=== PATIENT | male | born 1950 | race Caucasian/White ===

== ENCOUNTER 2019-12-15 16:21 | Emergency (ER) | payer OTHER ==
--- NOTE | 2019-12-15 17:10 | EDPHYS ---
Physician Documentation [facility] Name: Tito Cho Age: 69 yrs Sex: Male : 1950 Arrival Date: 12/15/2019 Time: 16:24 Bed 10 Private MD: ED Physician Walter Miller HPI: 12/14 17:36 This 69 yrs old Male presents to ER via Ambulatory with complaints of Sore snw Throat. 17:36 The patient presents with sore throat. The patient describes throat pain as scratchy. snw Onset: The symptoms/episode began/occurred acutely. Severity of symptoms: At their worst the symptoms were mild. Associated signs and symptoms: Pertinent positives: cough. It is unknown whether or not the patient has had similar symptoms in the past. The patient has been recently seen by a physician: the patient's primary care provider, with similar presenting complaints, seen in ED recently for back pain. pt non-toxic, afebrile, without fever, no SOB. Historical: - Allergies: 16:49 No Known Allergies; jl7 - Home Meds: 16:49 amlodipine oral [Active]; atorvastatin oral oral [Active]; levothyroxine oral [Active]; jl7 Hydroxyzine Oral [Active]; - PMHx: 16:49 Hyperlipidemia; Hypothyroidism; Hypertension; jl7 - Immunization history:: Adult Immunizations not up to date. - Social history:: Smoking status: Patient denies any tobacco usage or history of. ROS: 17:35 Constitutional: Negative for fever, chills, and weight loss, Eyes: Negative for injury, snw pain, redness, and discharge. 17:35 Neck: Negative for injury, pain, and swelling, Cardiovascular: Negative for chest pain, palpitations, and edema. 17:35 Abdomen/GI: Negative for abdominal pain, nausea, vomiting, diarrhea, and constipation, Back: Negative for injury and pain, : Negative for injury, bleeding, discharge, and swelling, MS/Extremity: Negative for injury and deformity, Skin: Negative for injury, rash, and discoloration, Neuro: Negative for headache, weakness, numbness, tingling, and seizure, Psych: Negative for depression, anxiety, suicide ideation, homicidal ideation, and hallucinations. 17:35 ENT: Positive for sore throat. 17:35 Respiratory: Positive for cough, with no reported sputum, croupy cough since last week, Dr. Wiggins rx cough medication and pt states cough has improved. Exam: 17:34 Constitutional: This is a well developed, well nourished patient who is awake, alert, snw and in no acute distress. Head/Face: Normocephalic, atraumatic. Eyes: Pupils equal round and reactive to light, extra-ocular motions intact. Lids and lashes normal. Conjunctiva and sclera are non-icteric and not injected. Cornea within normal limits. Periorbital areas with no swelling, redness, or edema. 17:34 Neck: Trachea midline, no thyromegaly or masses palpated, and no cervical lymphadenopathy. Supple, full range of motion without nuchal rigidity, or vertebral point tenderness. No Meningismus. Chest/axilla: Normal chest wall appearance and motion. Nontender with no deformity. No lesions are appreciated. Cardiovascular: Regular rate and rhythm with a normal S1 and S2. No gallops, murmurs, or rubs. Normal PMI, no JVD. No pulse deficits. 17:34 Abdomen/GI: Soft, non-tender, with normal bowel sounds. No distension or tympany. No guarding or rebound. No evidence of tenderness throughout. Back: No spinal tenderness. No costovertebral tenderness. Full range of motion. Skin: Warm, dry with normal turgor. Normal color with no rashes, no lesions, and no evidence of cellulitis. MS/ Extremity: Pulses equal, no cyanosis. Neurovascular intact. Full, normal range of motion. Neuro: Awake and alert, GCS 15, oriented to person, place, time, and situation. Cranial nerves II-XII grossly intact. Motor strength 5/5 in all extremities. Sensory grossly intact. Cerebellar exam normal. Normal gait. Psych: Awake, alert, with orientation to person, place and time. Behavior, mood, and affect are within normal limits. 17:34 ENT: Nose: is normal, Mouth: is normal, Posterior pharynx: erythema, that is mild. 17:34 Respiratory: the patient does not display signs of respiratory distress, Respirations: normal, Breath sounds: are clear throughout. Vital Signs: 16:35 BP 109 / 80; Pulse 85; Resp 17 S; Temp 98.6(O); Pulse Ox 95% on R/A; Weight 102.51 kg; jl7 Height 5 ft. 10 in. (177.80 cm) (R); Pain 0/10; 16:35 Body Mass Index 32.43 (102.51 kg, 177.80 cm) jl7 MDM: 17:09 Patient medically screened. snw 17:34 Data reviewed: vital signs, nurses notes. Data interpreted: Pulse oximetry: on room air snw is 95 %. Interpretation: acceptable. Counseling: I had a detailed discussion with the patient and/or guardian regarding: the historical points, exam findings, and any diagnostic results supporting the discharge/admit diagnosis, the presence of at least one elevated blood pressure reading (>120/80) during this emergency department visit, the need for outpatient follow up, to return to the emergency department if symptoms worsen or persist or if there are any questions or concerns that arise at home. Special discussion: Based on the history and exam findings, there is no indication for further emergent testing or inpatient evaluation. I discussed with the patient/guardian the need to see the primary care provider for further evaluation of the symptoms. Administered Medications: No medications were administered Disposition: 12/15 07:39 Co-signature as Attending Physician, Walter Miller MD I agree with the assessment and kdr plan of care. Disposition: 12/15/19 17:09 Discharged to Home. Impression: Cough, Encounter for screening, unspecified. - Condition is Stable. - Discharge Instructions: Cough, Adult. - Prescriptions for Zyrtec 10 mg Oral Tablet - take 1 tablet by ORAL route once daily As needed; 20 tablet. - Medication Reconciliation Form, Thank You Letter, Antibiotic Education, Prescription Opioid Use form. - Follow up: Emergency Department; When: As needed; Reason: Worsening of condition. Follow up: Private Physician; When: 2 - 3 days; Reason: Recheck today's complaints, Continuance of care, Re-evaluation by your physician. Signatures: Walter Miller MD MD kdr Therrien, Shelly, POSTAL CARRIER-C POSTAL CARRIER-Csnw Jad Huang RN RN jl7 Evelin Banks RN RN ls4 Corrections: (The following items were deleted from the chart) 12/14 17:41 17:09 12/15/2019 17:09 Discharged to Home. Impression: Cough; Encounter for screening, ls4 unspecified. Condition is Stable. Forms are Medication Reconciliation Form, Thank You Letter, Antibiotic Education, Prescription Opioid Use. Follow up: Emergency Department; When: As needed; Reason: Worsening of condition. Follow up: Private Physician; When: 2 - 3 days; Reason: Recheck today's complaints, Continuance of care, Re-evaluation by your physician. snw
--- NOTE | 2019-12-15 17:10 | ER ---
Nurse's Notes [facility] Name: Tito Cho Age: 69 yrs Sex: Male : 1950 Arrival Date: 12/15/2019 Time: 16:24 Bed 10 Private MD: Diagnosis: Cough;Encounter for screening, unspecified Presentation: 12/14 16:35 Chief complaint: Patient states: Reports sore throat with croupy cough on Thursday, jl7 denies fever; Dr. Wiggins gave cough medicine yesterday and pt called Dr. Wiggins today and asked if there's any concern for the COVID-19, Dr. Wiggins told him to go to the ER for testing. Coronavirus screen: The patient has NOT traveled to a country currently being monitored by the CDC within the last 14 days. Proceed with normal triage procedures. The patient has NOT had contact with any known and/or suspected case of coronavirus. Proceed with normal triage procedures. Ebola Screen: No symptoms or risks identified at this time. Initial Sepsis Screen: Does the patient meet any 2 criteria? No. Patient's initial sepsis screen is negative. Does the patient have a suspected source of infection? No. Patient's initial sepsis screen is negative. Risk Assessment: Do you want to hurt yourself or someone else? Patient reports no desire to harm self or others. Onset of symptoms was December 11, 2019. 16:35 Method Of Arrival: Ambulatory [facility] 16:35 Acuity: AMADO 5 jl7 Triage Assessment: 16:49 General: Appears in no apparent distress. uncomfortable, Behavior is calm, cooperative, jl7 appropriate for age. Pain: Denies pain. EENT: Reports sore throat. Historical: - Allergies: 16:49 No Known Allergies; jl7 - Home Meds: 16:49 amlodipine oral [Active]; atorvastatin oral oral [Active]; levothyroxine oral [Active]; jl7 Hydroxyzine Oral [Active]; - PMHx: 16:49 Hyperlipidemia; Hypothyroidism; Hypertension; jl7 - Immunization history:: Adult Immunizations not up to date. - Social history:: Smoking status: Patient denies any tobacco usage or history of. Screenin:55 Abuse screen: Denies threats or abuse. Denies injuries from another. Nutritional ls4 screening: No deficits noted. Tuberculosis screening: No symptoms or risk factors identified. Fall Risk None identified. Assessment: 16:50 Respiratory: Airway is patent Respiratory effort is even, unlabored, Breath sounds are ls4 clear bilaterally. 16:50 EENT: No deficits noted. No signs and/or symptoms were reported regarding the EENT ls4 system. Throat is clear. Vital Signs: 16:35 BP 109 / 80; Pulse 85; Resp 17 S; Temp 98.6(O); Pulse Ox 95% on R/A; Weight 102.51 kg; jl7 Height 5 ft. 10 in. (177.80 cm) (R); Pain 0/10; 16:35 Body Mass Index 32.43 (102.51 kg, 177.80 cm) jl7 ED Course: 16:24 Patient arrived in ED. ag5 16:47 Triage completed. jl7 16:49 Arm band placed on right wrist. jl7 16:50 Carmita Barrientos FNP-C is PHCP. snw 16:50 Walter Miller MD is Attending Physician. snw 16:54 Evelin Banks, RN is Primary Nurse. ls4 16:55 Patient has correct armband on for positive identification. Bed in low position. Call ls4 light in reach. Side rails up X 1. 16:55 No provider procedures requiring assistance completed. Patient did not have IV access ls4 during this emergency room visit. Administered Medications: No medications were administered Outcome: 17:09 Discharge ordered by . snw 17:21 Patient left the ED. ls4 17:21 Discharged to home ambulatory. ls4 17:21 Condition: stable 17:21 Discharge instructions given to patient, Instructed on discharge instructions, follow ls4 up and referral plans. safety practices, Demonstrated understanding of instructions, follow-up care, medications, Prescriptions given X 1. Signatures: Carmita Barrientos FNP-C ELECTRICAL TROUBLESHOOTER-Csnw Jad Huang RN RN jl7 Evelin Banks RN RN ls4 Nito Mackenzie ag5 Corrections: (The following items were deleted from the chart) 12/15 00:03 03/12 17:41 Patient left the ED. ls4 ls4
[2019-12-15 18:21] VITALS: BP 109/80; TEMP 98.6; O2SAT 95
== END 2019-12-15 17:41 | disposition home or self-care (01) ==
LOC: ER 16:21
DX: R05 Cough (principal); I10 Essential (primary) hypertension; E03.9 Hypothyroidism, unspecified; E78.5 Hyperlipidemia, unspecified
CPT/HCPCS: 99282